=== PATIENT | male | born 1975 | race Caucasian/White ===

== ENCOUNTER 2017-10-28 18:51 | Emergency (ER) | payer OTHER ==
[2017-10-28 19:00] VITALS: TEMP 98.1
[2017-10-28] MEDS ORDERED: Aspirin 325 mg EC Tablets PO STA (19:21)
--- NOTE | 2017-10-28 19:21 | C.PDOC ---
History Of Present Illness 41 years old male presents to ED for complaints of sudden left chest wall pain that began earlier today while sitting at home and watching a soccer game. Patient states he felt diaphoretic. Patient also reports he has been smoking more cigarettes the last few days due to personal issues. Denies fever, chills, nausea, or vomiting. Time Seen by Provider: 10/28/17 19:13 Chief Complaint (Nursing): Chest Pain History Per: Patient History/Exam Limitations: no limitations Onset/Duration Of Symptoms: Hrs Current Symptoms Are (Timing): Still Present Severity: Moderate Pain Scale Rating Of: 4 Quality: "Pain" Associated Symptoms: denies: Nausea, Dyspnea, Syncope Modifying Factors: None Exacerbating Factors: None Alleviating Factors: None Recent travel outside of the [place]: No Additional History Per: Patient Past Medical History Reviewed: Historical Data, Nursing Documentation, Vital Signs Vital Signs: Last Vital Signs Temp 98.1 F 10/28/17 18:58 Pulse 75 10/28/17 22:29 Resp 16 10/28/17 22:29 BP 127/85 10/28/17 22:29 Pulse Ox 99 10/28/17 22:29 - Medical History PMH: Diabetes Family History: States: No Known Family Hx - Social History Hx Alcohol Use: Yes Hx Substance Use: No - Immunization History Hx Tetanus Toxoid Vaccination: No Hx Influenza Vaccination: No Hx Pneumococcal Vaccination: No Review Of Systems Constitutional: Negative for: Fever, Chills Eyes: Negative for: Redness Cardiovascular: Positive for: Chest Pain (Left chest wall) Respiratory: Negative for: Shortness of Breath Gastrointestinal: Negative for: Nausea, Vomiting, Abdominal Pain, Diarrhea Musculoskeletal: Negative for: Back Pain Skin: Negative for: Rash Neurological: Negative for: Weakness, Numbness Psych: Negative for: Anxiety Physical Exam - Physical Exam Appears: Non-toxic, No Acute Distress, Other (Patient is currently chest pain free) Skin: Warm, Dry Head: Normacephalic Eye(s): bilateral: Normal Inspection Oral Mucosa: Moist Neck: Trachea Midline, Supple Chest: Symmetrical, No Tenderness Cardiovascular: Rhythm Regular, No Murmur Respiratory: No Decreased Breath Sounds, No Rales, No Rhonchi, No Wheezing Gastrointestinal/Abdominal: Soft, No Tenderness, No Distention Back: Normal Inspection Extremity: Normal ROM Extremity: Bilateral: Atraumatic, Normal Color And Temperature, Normal ROM Pulses: Left Dorsalis Pedis: Normal Neurological/Psych: Oriented x3 (Awake and alert) Gait: Steady ED Course And Treatment - Laboratory Results Result Diagrams: 10/28/17 19:29 10/28/17 19:29 ECG: Interpreted By Me, Viewed By Me ECG Rhythm: Sinus Rhythm (97), Nonspecific Changes O2 Sat by Pulse Oximetry: 100 (RA) Pulse Ox Interpretation: Normal - Radiology CXR: Interpreted by Me, Viewed By Me Progress Note: Administered Aspirin and Brilinta. Ordered BBK, EKG, blood work , CXR, and urinalysis. 7:13PM: - Discussed patient's EKG with Dr. York, who agrees that patient has code heart criteria. Disposition Discussed With Dr.: Reji Downing Comment: accepted the pt on his service and took over the care at 11:49PM Doctor Will See Patient In The: Hospital Counseled Patient/Family Regarding: Studies Performed, Diagnosis - Disposition Disposition: HOSPITALIZED Disposition Time: 19:21 Condition: FAIR Forms: [facility] (Latvian) - POA Present On Arrival: None - Clinical Impression Clinical Impression: Chest pain - Scribe Statement The provider has reviewed the documentation as recorded by the Scribe Rohit Yeager All medical record entries made by the Scribe were at my direction and personally dictated by me. I have reviewed the chart and agree that the record accurately reflects my personal performance of the history, physical exam, medical decision making, and the department course for this patient. I have also personally directed, reviewed, and agree with the discharge instructions and disposition. Decision To Admit - Pt Status Changed To: Hospital Disposition Of: Observation - . Bed Request Type: Telemetry Admitting Physician: Reji Downing Patient Diagnosis: Chest pain
[2017-10-28 19:34] LABS: BASO # 0.1 K/uL (0.0-0.2); BASO % 0.7 % (0.0-2.0); EOS # 0.1 K/uL (0.0-0.7); EOS % 1.3 % (0.0-4.0); LYMPH # 3.2 K/uL (1.0-4.3); LYMPH % 30.7 % (20.0-40.0); MEAN CELL VOLUME 83.7 fL (80.0-94.0); MEAN CORPUSCULAR HEMOGLOBIN 27.4 pg (27.0-31.0); MEAN CORPUSCULAR HGB CONC 32.8 g/dL (33.0-37.0); MONO # 0.7 K/uL (0.0-0.8); MONO % 6.3 % (0.0-10.0); NEUT # 6.5 K/uL (1.8-7.0); NRBC % 0.1 % (0.0-2.0); RBC 5.47 Mil/uL (4.40-5.90); RED CELL DISTRIBUTION WIDTH 13.7 % (11.5-14.5); WHITE BLOOD COUNT 10.6 K/uL (4.8-10.8)
[2017-10-28 19:45] LABS: PROTHROMBIN TIME 11.3 SECONDS (9.7-12.2)
[2017-10-28 19:47] LABS: ALB/GLOB RATIO 1.6 (1.0-2.1); ALBUMIN 4.6 g/dL (3.5-5.0); ALT/SGPT 31 U/L (21-72); AST/SGOT 29 U/L (17-59); BLOOD UREA NITROGEN 11 mg/dL (9-20); CALCIUM 9.5 mg/dl (8.6-10.4); GFR AFRICAN-AMERICAN > 60; GFR NON-AFRICAN AMERICAN > 60
[2017-10-28 20:39] LABS: URINE BILIRUBIN NEGATIVE (NEGATIVE); URINE BLOOD NEGATIVE (NEGATIVE); URINE CLARITY Clear (Clear); URINE COLOR Yellow (YELLOW); URINE GLUCOSE (UA) NORMAL (Normal); URINE LEUKOCYTE ESTERASE NEG Leu/uL (Negative); URINE PROTEIN NEGATIVE (NEGATIVE); URINE UROBILINOGEN NORMAL mg/dL (0.2-1.0)
[2017-10-28 21:00] LABS: BARBITURATES, UR NEGATIVE (NEGATIVE); BENZODIAZEPINES, UR NEGATIVE (NEGATIVE); OPIATES, UR NEGATIVE (NEGATIVE); PHENCYCLIDINE, UR NEGATIVE (NEGATIVE)
[2017-10-28 22:31] VITALS: BP 127/85; PULSE 75; RESP 16
[2017-10-28] MEDS ORDERED: Iodixanol 320 MG/ML 100 ML BOTTLE IV ONE (23:10)
[2017-10-28 23:52] VITALS: O2SAT 100
--- NOTE | 2017-10-29 09:24 | RAD ---
PROCEDURE: CHEST RADIOGRAPH, 1 VIEW HISTORY: chest pain COMPARISON: None available. FINDINGS: LUNGS: Clear. PLEURA: No pneumothorax or pleural fluid seen. CARDIOVASCULAR: Normal. OSSEOUS STRUCTURES: No significant abnormalities. VISUALIZED UPPER ABDOMEN: Normal. OTHER FINDINGS: None. IMPRESSION: No active disease.
--- NOTE | 2017-10-29 10:38 | CT ---
PROCEDURE: CT Chest with contrast (Pulmonary Angiogram) HISTORY: cp, sob COMPARISON: None available. TECHNIQUE: Axial computed tomography images were obtained of the chest in the pulmonary arterial phase of enhancement. Coronal and sagittal reformatted images were created and reviewed. Intravenous contrast dose: 100 mL Visipaque 320 Radiation dose: Total exam DLP = 449.2 mGy-cm. This CT exam was performed using one or more of the following dose reduction techniques: Automated exposure control, adjustment of the mA and/or kV according to patient size, and/or use of iterative reconstruction technique. FINDINGS: PULMONARY ARTERIES: Unremarkable. No pulmonary embolism. AORTA: No acute findings. Common origin of the brachiocephalic and left common carotid arteries. No thoracic aortic aneurysm. LUNGS: Unremarkable. No nodule, mass or pulmonary consolidation. PLEURAL SPACES: Unremarkable. No effusion or pneuomothorax. HEART: Unremarkable. No cardiomegaly. No significant pericardial effusion. LYMPH NODES: No lymphadenopathy. BONES, CHEST WALL: Unremarkable. No fracture or destructive lesion OTHER FINDINGS: Unremarkable. IMPRESSION: Unremarkable CT pulmonary angiogram. No pulmonary embolus.
--- NOTE | 2017-10-29 14:31 | CP.PCM.HP ---
History of Present Illness - History of Present Illness History of Present Illness: PATIENT WAS ADMITTED [facility] PA[facility] WHI SOCCER GAME ASSOCIATED WITH DIAPHORESIS. cARDIAC WORKUP IN THE EMERGENCY ROOM WAS NEGATIVE FOR ANY ACUTE ISCHEMIA. CT chest angiography did not reveal any pulmonary embolism. patient signed out AGAINST MED PATIENT COULD BE EXAM Present on Admission - Present on Admission Any Indicators Present on Admission: No Past Patient History - Infectious Disease Hx of Infectious Diseases: None - Past Social History Smoking Status: Light Smoker < 10 Cigarettes Daily - ENDOCRINE/METABOLIC Hx Diabetes Mellitus Type 2: Yes - PSYCHIATRIC Hx Substance Use: No - SURGICAL HISTORY Hx Surgeries: Yes Hx Orthopedic Surgery: Yes - ANESTHESIA Hx Anesthesia: Yes Hx Anesthesia Reactions: No Meds Allergies/Adverse Reactions: Allergies Allergy/AdvReac Type Severity Reaction Status Date / Time amoxicillin Allergy Verified 10/28/17 18:57 Results - Vital Signs Recent Vital Signs: Last Vital Signs Temp 98.1 F 10/28/17 18:58 Pulse 75 10/28/17 22:29 Resp 16 10/28/17 22:29 BP 127/85 10/28/17 22:29 Pulse Ox 100 10/28/17 23:53 - Labs Result Diagrams: 10/28/17 19:29 10/28/17 19:29 Labs: Laboratory Results - last 24 hr 10/28/17 10/28/17 10/28/17 19:29 19:29 19:29 WBC 10.6 RBC 5.47 Hgb 15.0 Hct 45.8 MCV 83.7 MCH 27.4 MCHC 32.8 L RDW 13.7 Plt Count 217 MPV 9.0 Neut % (Auto) 61.0 Lymph % (Auto) 30.7 [place] % (Auto) 6.3 Eos % (Auto) 1.3 Baso % (Auto) 0.7 Neut # (Auto) 6.5 Lymph # (Auto) 3.2 [place] # (Auto) 0.7 Eos # (Auto) 0.1 Baso # (Auto) 0.1 PT 11.3 INR 1.0 APTT 31 Sodium 142 Potassium 3.7 Chloride 101 Carbon Dioxide 26 Anion Gap 18 BUN 11 Creatinine 0.9 Est GFR ( Amer) > 60 Est GFR (Non-Af Amer) > 60 Random Glucose 133 H Calcium 9.5 Total Bilirubin 0.8 AST 29 ALT 31 Alkaline Phosphatase 41 Troponin I NT-Pro-B Natriuret Pep Total Protein 7.4 Albumin 4.6 Globulin 2.8 Albumin/Globulin Ratio 1.6 Urine Color Urine Clarity Urine pH Ur Specific [place] Urine Protein Urine Glucose (UA) Urine Ketones Urine Blood Urine Nitrate Urine Bilirubin Urine Urobilinogen Ur Leukocyte Esterase Urine WBC (Auto) Urine RBC (Auto) Urine Opiates Screen Urine Methadone Screen Ur Barbiturates Screen Ur Phencyclidine Scrn Ur Amphetamines Screen U Benzodiazepines Scrn U Oth Cocaine Metabols U Cannabinoids Screen Blood Type Antibody Screen 10/28/17 10/28/17 10/28/17 19:29 19:29 20:27 WBC RBC Hgb Hct MCV MCH MCHC RDW Plt Count MPV Neut % (Auto) Lymph % (Auto) [place] % (Auto) Eos % (Auto) Baso % (Auto) Neut # (Auto) Lymph # (Auto) [place] # (Auto) Eos # (Auto) Baso # (Auto) PT INR APTT Sodium Potassium Chloride Carbon Dioxide Anion Gap BUN Creatinine Est GFR ( Amer) Est GFR (Non-Af Amer) Random Glucose Calcium Total Bilirubin AST ALT Alkaline Phosphatase Troponin I < 0.0120 NT-Pro-B Natriuret Pep 20.0 Total Protein Albumin Globulin Albumin/Globulin Ratio Urine Color Yellow Urine Clarity Clear Urine pH 6.0 Ur Specific [place] 1.018 Urine Protein Negative Urine Glucose (UA) Normal Urine Ketones Negative Urine Blood Negative Urine Nitrate Negative Urine Bilirubin Negative Urine Urobilinogen Normal Ur Leukocyte Esterase Neg Urine WBC (Auto) < 1 Urine RBC (Auto) 2 Urine Opiates Screen Urine Methadone Screen Ur Barbiturates Screen Ur Phencyclidine Scrn Ur Amphetamines Screen U Benzodiazepines Scrn U Oth Cocaine Metabols U Cannabinoids Screen Blood Type A POSITIVE Antibody Screen Negative 10/28/17 20:27 WBC RBC Hgb Hct MCV MCH MCHC RDW Plt Count MPV Neut % (Auto) Lymph % (Auto) [place] % (Auto) Eos % (Auto) Baso % (Auto) Neut # (Auto) Lymph # (Auto) [place] # (Auto) Eos # (Auto) Baso # (Auto) PT INR APTT Sodium Potassium Chloride Carbon Dioxide Anion Gap BUN Creatinine Est GFR ( Amer) Est GFR (Non-Af Amer) Random Glucose Calcium Total Bilirubin AST ALT Alkaline Phosphatase Troponin I NT-Pro-B Natriuret Pep Total Protein Albumin Globulin Albumin/Globulin Ratio Urine Color Urine Clarity Urine pH Ur Specific [place] Urine Protein Urine Glucose (UA) Urine Ketones Urine Blood Urine Nitrate Urine Bilirubin Urine Urobilinogen Ur Leukocyte Esterase Urine WBC (Auto) Urine RBC (Auto) Urine Opiates Screen Negative Urine Methadone Screen Negative Ur Barbiturates Screen Negative Ur Phencyclidine Scrn Negative Ur Amphetamines Screen Negative U Benzodiazepines Scrn Negative U Oth Cocaine Metabols Negative U Cannabinoids Screen Negative Blood Type Antibody Screen
--- NOTE | 2017-10-29 14:33 | CP.PCM.DIS ---
Provider - Provider Date of Admission: 10/28/17 23:48 Attending physician: Reji Downing MD Time Spent in preparation of Discharge (in minutes): 3 Hospital Course - Lab Results Lab Results: Most Recent Lab Values WBC 10.6 K/uL (4.8-10.8) 10/28/17 19: RBC 5.47 Mil/uL (4.40-5.90) 10/28/17 19: Hgb 15.0 g/dL (12.0-18.0) 10/28/17 19: Hct 45.8 % (35.0-51.0) 10/28/17 19: MCV 83.7 fL (80.0-94.0) 10/28/17 19: MCH 27.4 pg (27.0-31.0) 10/28/17 19: MCHC 32.8 g/dL (33.0-37.0) L 10/28/17 19: RDW 13.7 % (11.5-14.5) 10/28/17 19: Plt Count 217 K/uL (130-400) 10/28/17 19: MPV 9.0 fL (7.2-11.7) 10/28/17 19: Neut % (Auto) 61.0 % (50.0-75.0) 10/28/17 19: Lymph % (Auto) 30.7 % (20.0-40.0) 10/28/17 19: [place] % (Auto) 6.3 % (0.0-10.0) 10/28/17 19: Eos % (Auto) 1.3 % (0.0-4.0) 10/28/17 19: Baso % (Auto) 0.7 % (0.0-2.0) 10/28/17: Neut # (Auto) 6.5 K/uL (1.8-7.0) 10/28/17 19: Lymph # (Auto) 3.2 K/uL (1.0-4.3) 10/28/17 19: [place] # (Auto) 0.7 K/uL (0.0-0.8) 10/28/17 19: Eos # (Auto) 0.1 K/uL (0.0-0.7) 10/28/17 19:29 Baso # (Auto) 0.1 K/uL (0.0-0.2) 10/28/17 19:29 PT 11.3 SECONDS (9.7-12.2) 10/28/17 19:29 INR 1.0 10/28/17 19:29 APTT 31 SECONDS (21-34) 10/28/17 19:29 Sodium 142 mmol/L (132-148) 10/28/17 19:29 Potassium 3.7 mmol/L (3.6-5.2) 10/28/17 19:29 Chloride 101 mmol/L (98-107) 10/28/17 19:29 Carbon Dioxide 26 mmol/L (22-30) 10/28/17 19:29 Anion Gap 18 (10-20) 10/28/17 19:29 BUN 11 mg/dL (9-20) 10/28/17 19:29 Creatinine 0.9 mg/dL (0.8-1.5) 10/28/17 19:29 Est GFR ( Amer) > 60 10/28/17 19:29 Est GFR (Non-Af Amer) > 60 10/28/17 19:29 Random Glucose 133 mg/dL (75-110) H 10/28/17 19: Calcium 9.5 mg/dl (8.6-10.4) 10/28/17 19:29 Total Bilirubin 0.8 mg/dL (0.2-1.3) 10/28/17 19:29 AST 29 U/L (17-59) 10/28/17 19: ALT 31 U/L (21-72) 10/28/17 19:29 Alkaline Phosphatase 41 U/L (38-126) 10/28/17 19:29 Troponin I < 0.0120 ng/mL (0.00-0.120) 10/28/17 19: NT-Pro-B Natriuret Pep 20.0 pg/mL (0-450) 10/28/17 19:29 Total Protein 7.4 g/dL (6.3-8.3) 10/28/17 19:29 Albumin 4.6 g/dL (3.5-5.0) 10/28/17 19:29 Globulin 2.8 gm/dL (2.2-3.9) 10/28/17 19:29 Albumin/Globulin Ratio 1.6 (1.0-2.1) 10/28/17 19:29 Urine Color Yellow (YELLOW) 10/28/17 20:27 Urine Clarity Clear (Clear) 10/28/17 20:27 Urine pH 6.0 (5.0-8.0) 10/28/17 20:27 Ur Specific [place] 1.018 (1.003-1.030) 10/28/17 20:27 Urine Protein Negative mg/dL (NEGATIVE) 10/28/17 20:27 Urine Glucose (UA) Normal mg/dL (Normal) 10/28/17 20: Urine Ketones Negative mg/dL (NEGATIVE) 10/28/17 20:27 Urine Blood Negative (NEGATIVE) 10/28/17 20:27 Urine Nitrate Negative (NEGATIVE) 10/28/17 20:27 Urine Bilirubin Negative (NEGATIVE) 10/28/17 20:27 Urine Urobilinogen Normal mg/dL (0.2-1.0) 10/28/17 20:27 Ur Leukocyte Esterase Neg Gideon/uL (Negative) 10/28/17 20:27 Urine WBC (Auto) < 1 /hpf (0-5) 10/28/17 20:27 Urine RBC (Auto) 2 /hpf (0-3) 10/28/17 20:27 Urine Opiates Screen Negative (NEGATIVE) 10/28/17 20:27 Urine Methadone Screen Negative (NEGATIVE) 10/28/17 20:27 Ur Barbiturates Screen Negative (NEGATIVE) 10/28/17 20:27 Ur Phencyclidine Scrn Negative (NEGATIVE) 10/28/17 20:27 Ur Amphetamines Screen Negative (NEGATIVE) 10/28/17 20:27 U Benzodiazepines Scrn Negative (NEGATIVE) 10/28/17 20:27 U Oth Cocaine Metabols Negative (NEGATIVE) 10/28/17 20:27 U Cannabinoids Screen Negative (NEGATIVE) 10/28/17 20:27 Blood Type A POSITIVE 10/28/17 19: Antibody Screen Negative 10/28/17 19:29 - Hospital Course Hospital Course: PATIENT WAS ADMITTED WITH CHEST PAIN>EKG cardiac enzymeswere negative. CT angiography of the chest did not reveal any pulmonary embolism. Patient signed out AGAINST MEDICAL ADVICE will contact patient for any further evaluation. Discharge Plan - Follow Up Plan Condition: FAIR Disposition: AGAINST MEDICAL ADVICE Instructions: Chest Pain Additional Instructions: Please return if symptoms recur Referrals: [facility] [Outside] [facility] [Outside]
--- NOTE | 2017-10-30 21:01 | CARD ---
APPROVED REPORT EKG Measurement Heart [id number] <Conclusion> Normal sinus rhythm Cannot rule out Anterior infarct, age undetermined Inferior injury pattern ACUTE [place] / STEMI Abnormal ECG
== END 2017-10-29 00:36 | disposition left against medical advice (07) ==
LOC: C.ER 18:51 → INTOOBSV 23:48 → UNDOADMOB 23:48 → C.9OBSV 23:48 → C.9E 10-29 00:24 → UNDODISOB 10-29 00:26 → C.ER 10-29 00:36
DX: R07.89 Other chest pain (principal); E11.9 Type 2 diabetes mellitus without complications; F17.210 Nicotine dependence, cigarettes, uncomplicated
CPT/HCPCS: 71045; 71275; 80053; 80324; 80345; 80346; 80349; 80353; 80358; 80361; 81001; 83880; 83992; 84484; 85025; 85610; 85730; 86850; 86900; G0378; Q9967